=== PATIENT | male | born 1970 | race Caucasian/White ===

== ENCOUNTER 2017-03-13 21:10 | Emergency (ER) | payer BC, OTHER ==
[~2017-03-13] VITALS: Ht 180.3 cm; Wt 108.9 kg
[2017-03-13 21:40] LABS: BASOPHILS % (AUTO) 0 % (0-10); EOSINOPHILS # (AUTO) 0.3 10^3/uL (0.0-0.3); EOSINOPHILS % (AUTO) 3 % (0-10); LYMPHOCYTES # (AUTO) 2.8 X 10^3 (1.0-4.0); LYMPHOCYTES % (AUTO) 24 % (12-44); MEAN CORPUSCULAR HEMOGLOBIN 28 PG (25-34); MEAN CORPUSCULAR HGB CONC 34 G/DL (32-36); MEAN CORPUSCULAR VOLUME 84 FL (80-99); MEAN PLATELET VOLUME 11.1 FL (7.4-10.4); MONOCYTES # (AUTO) 0.8 X 10^3 (0.0-1.0); MONOCYTES % (AUTO) 7 % (0-12); NEUTROPHILS # (AUTO) 7.6 X 10^3 (1.8-7.8); NEUTROPHILS % (AUTO) 66 % (42-75); PLATELET COUNT 294 10^3/uL (130-400); RED BLOOD COUNT 4.75 10^6/uL (4.35-5.85); RED CELL DISTRIBUTION WIDTH 13.8 % (10.0-14.5); WHITE BLOOD COUNT 11.5 10^3/uL (4.3-11.0)
[2017-03-13 21:56] LABS: INR 0.9 (0.8-1.4)
[2017-03-13 22:04] LABS: ALANINE AMINOTRANSFERASE 23 U/L (0-55); ALBUMIN 4.1 GM/DL (3.2-4.5); ANION GAP 15 MMOL/L (5-14); ASPARTATE AMINO TRANSFERASE 19 U/L (5-34); BILIRUBIN,TOTAL 0.8 MG/DL (0.1-1.0); BLOOD UREA NITROGEN 14 MG/DL (7-18); BUN/CREATININE RATIO 13 (0-20); CALCIUM 9.1 MG/DL (8.5-10.1); CARBON DIOXIDE 19 MMOL/L (21-32); CHLORIDE 104 MMOL/L (98-107); CREATININE SERUM 1.11 MG/DL (0.60-1.30); GFR ESTIMATED > 60; GLUCOSE 258 MG/DL (70-105); HEMOLYSIS 104 (-100-29); ICTERUS 0.5 (-100-1.9); LIPEMIA 14 (-100-49); POTASSIUM 4.5 MMOL/L (3.6-5.0); SODIUM 138 MMOL/L (135-145); TOTAL PROTEIN 7.6 GM/DL (6.4-8.2)
[2017-03-13] MEDS ORDERED: PRD10T PO (23:41)
[2017-03-13] MEDS ORDERED: FAMO40TA72 PO (23:41)
--- NOTE | 2017-03-13 23:41 | ED General ---
General Chief Complaint: Skin/Wound Problems Stated Complaint: R ARM SWOLLEN POSS FLY BITE Nursing Triage Note: pt states bit by insect yesterday on rt upper arm. swelling, redness, and warmth visualized. pt states recent surgery 1 yr ago Nursing Sepsis Screen: No Definite Risk Source of Information: Patient History of Present Illness Time Seen by Provider: 21:24 Initial Comments PT ARRIVES VIA POV FROM HOME PT HAD CERVICAL SPINE DISC SURGERY [address] HANCOCK [address], AND IS IN A SOFT CERVICAL COLLAR PT WAS STUNG ON RIGHT UPPER ARM BY A HORSEFLY YESTERDAY AND JERKED HIS NECK TO THE RIGHT, AND HAS HAD INCREASED PAIN IN NECK SINCE THEN NO PARESTHESIAS OR MOTOR DEFICITS NO RADIATION OF PAIN DOWN ARMS OR BACK NO HEADACHE PT HAS NOT TAKEN ANYTHING FOR PAIN TODAY AND HAS HAD INCREASED PAIN IN NECK TODAY--LAST DOSE OF PAIN MEDICATION WAS AT 1930 LAST NIGHT PT DID WORK ALL DAY TODAY PT STATES HE HAS HAD INCREASED PAIN, REDNESS, WARMTH AND SWELLING TO RIGHT ARM SINCE YESTERDAY WAS SEEN AT [facility] LAST PM AND WAS GIVEN A SHOT OF BENADRYL FOR THE HORSEFLY BITE. PT HAS NOT HAD ANY IMPROVEMENT IN SWELLING TODAY PT HAS NOT TAKEN ANYTHING FOR SYMPTOMS AT HOME NO FEVER\ NO CHEST PAIN, SHORTNESS OF BREATH, PALPITATIONS OR DIZZINESS NO SWELLING TO LIPS, TONGUE OR THROAT AND NO DIFFICULTY SWALLOWING NO SWELLING ANYWHERE ELSE Allergies and Home Medications Allergies Coded Allergies: No Known Drug Allergies (Unverified , 03/13/17) Home Medications Famotidine 40 Mg Tablet, 40 MG PO DAILY, #10 Prescribed by: SHARAD KATZ on 03/13/17 2341 Prednisone 10 Mg Tab, 40 MG PO DAILY, #12 Prescribed by: SHARAD KATZ on 03/13/17 2341 Constitutional: no symptoms reported EENTM: no symptoms reported Respiratory: no symptoms reported Cardiovascular: no symptoms reported Gastrointestinal: no symptoms reported Genitourinary: no symptoms reported Musculoskeletal: see HPI Skin: see HPI Psychiatric/Neurological: No Symptoms Reported Hematologic/Lymphatic: No Symptoms Reported Past Ejejxdz-Zwdeic-Zfwfre Hx Patient Social History Alcohol Use: Occasionally Uses Recreational Drug Use: No Smoking Status: Former Smoker (1 PPD, QUIT 08/2016) Former Smoker/When Quit: Aug 27, 2016 Recent Foreign Travel: No Contact w/Someone Who Travel: No Recent Infectious Disease Expo: Yes (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 HANCOCK 02/2017; JAW FX WIRED; LEFT 3RD FINGER FX/ORIF; RIGHT LUNG THORACOTOMY / OPEN DRAINAGE OF ? EMPYEMA/ABSCESS? FROM PNEUMONIA 09/2016--JESSICA/DR. BEVERLY) Surgeries: Gallbladder, Orthopedic Respiratory Hx Respiratory Disorders: Yes (PNEUMONIA 09/2016 WITH OPEN SURGICAL DRAINAGE OF RIGHT LUNG WITH DRAINS PLACED-? EMPYEMA/ABSCESS?) Cardiovascular Hx Cardiac Disorders: Yes Cardiac Disorders: High Cholesterol, Hypertension Neurological Hx Neurological Disorders: No Genitourinary Hx Genitourinary Disorders: No Gastrointestinal Hx Gastrointestinal Disorders: Yes (S/P CHEIKH) Gastrointestinal Disorders: Gall Bladder Disease Musculoskeletal Hx Musculoskeletal Disorders: Yes (CHRONIC NECK AND BACK PAIN ) Musculoskeletal Disorders: Degenerate Disk Disease, Chronic Back Pain Endocrine Hx Endocrine Disorders: Yes Endocrine Disorders: Diabetes, Insulin dep HEENT HX ENT Disorders: Yes (MULTIPLE MISSING TEETH) Cancer Hx Cancer: No Psychosocial Hx Psychiatric Problems: No Integumentary HX Skin/Integumentary Disorder: No Blood Transfusions Hx Blood Disorders: No Physical Exam Vital Signs Vital Sign - Last 12Hours 03/13/17 21:37 Temp 97.5 Pulse 105 Resp 20 B/P (MAP) 147/105 Pulse Ox 98 O2 Delivery Room Air Capillary Refill : NONE General Appearance: No Apparent Distress, WD/WN, Obese, Other (WEARING SOFT C- COLLAR, SMILING, VERY TALKATIVE, DOES NOT APPEAR TO BE IN ANY DISCOMFORT. ) HEENT: PERRL/EOMI, Other (MULTIPLE MISSING TEETH) Neck: Other (IN CERVICAL COLLAR) Respiratory: Normal Breath Sounds, No Accessory Muscle Use, No Respiratory Distress Cardiovascular: Regular Rate, Rhythm, No Murmur Gastrointestinal: Non Tender, Soft Extremity: Normal Capillary Refill, Normal Range of Motion, Swelling (ENTIRE RIGHT ARM SWOLLEN TO JUST ABOVE WRIST, WITH ERYTHEMA AND WARMTH, DISTAL MOTOR/ SENSORY/VASCULAR INTACT. HAS FULL ROM WITHOUT DIFFICULTY. NO DRAINAGE. NO STREAKS. NO AREAS OF FLUCTUANCE. NO CORDING. RIGHT ARM IS SIGNIFICANTLY LARGER THAN LEFT ), Other (1 CM ERYTHEMATOUS PAPULE TO RIGHT UPPER ARM--PT REPORTS IS HORSEFLY STING SITE. ) Neurologic/Psychiatric: Alert, Oriented x3, No Motor/Sensory Deficits, Normal Mood/Affect, trash collector II-XII Norm as Tested Skin: Normal Color, Warm/Dry, Other ( ABOVE) Progress/Results/Core Measures Results/Orders Lab Results Laboratory Tests Test 03/13/17 21:30 Range/Units White Blood Count 11.5 H 4.3-11.0 10^3/uL Red Blood Count 4.75 4.35-5.85 10^6/uL Hemoglobin 13.5 13.3-17.7 G/DL Hematocrit 40 40-54 % Mean Corpuscular Volume 84 80-99 FL Mean Corpuscular Hemoglobin 28 25-34 PG Mean Corpuscular Hemoglobin Concent 34 32-36 G/DL Red Cell Distribution Width 13.8 10.0-14.5 % Platelet Count 294 130-400 10^3/uL Mean Platelet Volume 11.1 H 7.4-10.4 FL Neutrophils (%) (Auto) 66 42-75 % Lymphocytes (%) (Auto) 24 12-44 % Monocytes (%) (Auto) 7 0-12 % Eosinophils (%) (Auto) 3 0-10 % Basophils (%) (Auto) 0 0-10 % Neutrophils # (Auto) 7.6 1.8-7.8 X 10^3 Lymphocytes # (Auto) 2.8 1.0-4.0 X 10^3 Monocytes # (Auto) 0.8 0.0-1.0 X 10^3 Eosinophils # (Auto) 0.3 0.0-0.3 10^3/uL Basophils # (Auto) 0.0 0.0-0.1 10^3/uL Prothrombin Time 12.0 L 12.2-14.7 SEC INR Comment 0.9 0.8-1.4 Activated Partial Thromboplast Time 28 24-35 SEC Sodium Level 138 135-145 MMOL/L Potassium Level 4.5 3.6-5.0 MMOL/L Chloride Level 104 98-107 MMOL/L Carbon Dioxide Level 19 L 21-32 MMOL/L Anion Gap 15 H 5-14 MMOL/L Blood Urea Nitrogen 14 7-18 MG/DL Creatinine 1.11 0.60-1.30 MG/DL Estimat Glomerular Filtration Rate > 60 BUN/Creatinine Ratio 13 0-20 Glucose Level 258 H 70-105 MG/DL Calcium Level 9.1 8.5-10.1 MG/DL Total Bilirubin 0.8 0.1-1.0 MG/DL Aspartate Amino Transf (AST/SGOT) 19 5-34 U/L Alanine Aminotransferase (ALT/SGPT) 23 0-55 U/L Alkaline Phosphatase 88 40-136 U/L Total Protein 7.6 6.4-8.2 GM/DL Albumin 4.1 3.2-4.5 GM/DL My Orders Orders - STERLINGSHARAD Monterroso DO Saline Lock/Iv-Start (03/13/17 21:23) Ct Neck (Soft Tissue) W (03/13/17 21:23) Ct Cervical Spine Wo (03/13/17 21:23) Cbc With Automated Diff (03/13/17 21:23) Comprehensive Metabolic Panel (03/13/17 21:23) Protime With Inr (03/13/17 21:23) Partial Thromboplastin Time (03/13/17 21:23) Us Venous Upper Ext Rt (03/13/17 21:23) Methylprednisolone Sod Succ (Solu-Medrol (03/13/17 23:45) Diphenhydramine Injection (Benadryl Inje (03/13/17 23:45) Famotidine Injection (Pepcid Injection) (03/13/17 23:45) Medications Given in ED Current Medications Medications Dose Ordered Sig/Silvestre Route Start Time Stop Time Status Last Admin Dose Admin Diphenhydramine HCl 50 mg ONCE ONCE IVP 03/13/17 23:45 03/13/17 23:46 DC 03/13/17 23:53 50 MG Famotidine 40 mg ONCE ONCE IVP 03/13/17 23:45 03/13/17 23:46 DC 03/13/17 23:52 40 MG Methylprednisolone Sodium Succinate 125 mg ONCE ONCE IVP 03/13/17 23:45 03/13/17 23:46 DC 03/13/17 23:53 125 MG Vital Signs/I&O Vital Sign - Last 12Hours 03/13/17 03/13/17 21:37 23:59 Temp 97.5 Pulse 105 86 Resp 20 20 B/P (MAP) 147/105 Pulse Ox 98 98 O2 Delivery Room Air Room Air Blood Pressure Mean: 119 Progress Note : Progress Note NO DETERIORATION IN PT'S CONDITION DURING ER STAY DISCUSSED WITH PT THAT HIS BLOOD GLUCOSE LEVELS WILL TEMPORARILY ELEVATE WHILE TAKING PREDNISONE ALSO INFORMED HIM THAT HE DID NOT HAVE TO TAKE PEPCID OR PREDNISONE IF HIS ARM WAS BETTER TOMORROW. Diagnostic Imaging Comments VENOUS ULTRASOUND/DOPPLER RIGHT ARM--NO DVT, PER [facility] VIA FAX @ 7094 CT CERVICAL SPINE--NO ACUTE FRACTURE OR MALALIGNMENT, DISC PROSTHESIS AT C6-C7-- PER [facility] VIA FAX @ 4345 CT NECK SOFT TISSUES--DISC PROSTHESIS AT C6-C7, MILD PREVERTEBRAL EDEMA C4-C5, NON-SPECIFIC IN SETTING OF RECENT SURGERY, OTHERWISE NO ACUTE PROCESS--PER [facility] VIA FAX @ 0014 Reviewed: Reviewed by Me Departure Impression Impression: Primary Impression: REACTION TO HORSEFLY STING RIGHT ARM Additional Impression: POST OP CERVICAL SPINE PAIN Disposition: HOME, SELF-CARE Condition: Stable Departure-Patient Inst. Referrals: NO,LOCAL PHYSICIAN (PCP) Primary Care Physician Patient Instructions: Insect Bites and Stings (DC), Postoperative Pain (DC) Add. Discharge Instructions: ELEVATE RIGHT ARM MUCH POSSIBLE TAKE BENADRYL 50 MG EVERY 4-6 HOURS NEEDED FOR SWELLING CONTINUE ALL POSTOP INSTRUCTIONS TAKE YOUR PAIN MEDICATIONS NEEDED FOLLOW UP WITH YOUR DR ON WEDNESDAY IF NO BETTER RETURN TO ER IF WORSE All discharge instructions reviewed with patient and/or family. Voiced understanding. Scripts Prednisone (Prednisone) 10 Mg Tab 40 MG PO DAILY, #12 TAB Prov: SHARAD KATZ DO 03/13/17 Famotidine (Pepcid) 40 Mg Tablet 40 MG PO DAILY, #10 TAB Prov: SHARAD KATZ DO 03/13/17 SHARAD KATZ DO Mar 13, 2017 23:41
[2017-03-13] MEDS ORDERED: methylPREDNISolone 125 MG (Solu-MEDROL) VIAL IVP ONE (23:45)
[2017-03-13] MEDS ORDERED: diphenhydrAMINE 50 MG/ML INJ (BENADRYL) IVP ONE (23:45)
[2017-03-13] MEDS ORDERED: FAMOTIDINE 20MG/2ML IV (PEPCID) IVP ONE (23:45)
[2017-03-13 23:59] VITALS: BP 153/100
--- NOTE | 2017-03-14 07:15 | Diagnostic Imaging Report ---
INDICATION: Status post recent neck surgery. Pain and swelling. TECHNIQUE: Color and grayscale sonographic images with duplex Doppler evaluation of the upper extremity venous system. CORRELATION STUDY: None FINDINGS: There is no intraluminal filling defect within the visualized portion of the internal jugular, subclavian, axillary, brachial and/or basilic veins to suggest thrombus formation. Where applicable, these vessels demonstrate normal response to compression and augmentation. There is no significant soft tissue fluid collection. IMPRESSION: 1. Negative right upper extremity venous duplex Doppler evaluation. Dictated by: Dictated on workstation # [id number]
--- NOTE | 2017-03-14 07:47 | Diagnostic Imaging Report ---
PROCEDURE: CT neck soft tissue with contrast. TECHNIQUE: Multiple contiguous axial images were obtained through the neck after the administration of contrast. INDICATION: Recent cervical spine surgery. Jerked head to the right, now with pain. FINDINGS: There is straightening of the cervical lordosis. Disc prosthesis at C6-C7 is present. There is mild prevertebral edema at C4-C5 level, nonspecific in setting of recent surgery. A definitive loculated fluid collection does not appear to be present. Nasopharynx and oropharynx appearing unremarkable. Parapharyngeal fat planes preserved. Vocal cords and subglottic airway unremarkable. Parotid glands, submandibular glands, and thyroid gland unremarkable. Visualized lung apices unremarkable. Paranasal sinuses relatively clear. IMPRESSION: Mild prevertebral edema particularly at C4-C5 level, nonspecific in setting of recent surgery. No definitive loculated fluid collection suggested. Dictated by: Dictated on workstation # [id number]
--- NOTE | 2017-03-14 08:01 | Diagnostic Imaging Report ---
PROCEDURE: CT cervical spine without contrast. TECHNIQUE: Multiple contiguous axial images were obtained through the cervical spine without the use of intravenous contrast. Sagittal and coronal reformations were then performed. INDICATION: Recent spine surgery. Jerked head to the right, now with pain. CORRELATION STUDY: None. FINDINGS: There is straightening of the normal cervical lordosis. Alignment is otherwise relatively anatomic. There is a disc prosthesis at C6-C7 level with metallic artifact. Positioning of the disc appears to be likely normal. Minimal endplate spurring is present. There may be minimal osteophyte formation extending into the spinal canal. Remaining disc spaces overall demonstrate minimal narrowing at C4-C5 level with minimal broad-based disc bulge. Moderate narrowing at C7-T1 level. Posterior elements intact. There does appear to be mild paraspinal soft tissue swelling particularly at C5-C6. IMPRESSION: Straightening of the normal cervical lordosis. Postsurgical changes at C6-C7 level. Mild pre-spinal edema. Dictated by: Dictated on workstation # [id number]
== END 2017-03-14 | disposition home or self-care (01) ==
LOC: ER 21:16
DX: S40.861A Insect bite (nonvenomous) of right upper arm, initial encounter (principal); G89.18 Other acute postprocedural pain; E11.9 Type 2 diabetes mellitus without complications; Z87.891 Personal history of nicotine dependence; W57.XXXA Bitten or stung by nonvenomous insect and other nonvenomous arthropods, initial encounter
CPT/HCPCS: 36415; 70491; 72125; 80053; 85025; 85610; 85730

== ENCOUNTER 2018-01-13 20:08 | Emergency (ER) | payer BC, OTHER ==
[~2018-01-13] VITALS: Ht 180.3 cm; Wt 117.5 kg
[~2018-01-13 20:08] MED LIST: FAMO40TA72 PO; PRD10T PO
--- OUTSIDE RECORDS SUMMARY | 2018-01-13 20:14 | XMS REPORT | CCD ---
Author Author ISABELLE BOCANEGRA Organization Unknown Address [address] [facility] [address] [place] [address] Care Team Providers Care Sponge Packer Name Role Phone [facility], BRENDA DO Attphys [facility], BRENDA DO Prisurg Allergies Unknown or Not Available. Active Medications Unknown or Not Available. Problems Problem Code Start Date Resolved Date Status Sepsis 05625930 10/03/2016 Active Acute respiratory failure with hypoxia 186544936 10/03/2016 Active Pneumonia 177592552 10/03/2016 Active Procedures Unknown or Not Available. Results Unknown or Not Available. Function Status Unknown or Not Available. History of Immunizations Unknown or Not Available. Plan of Treatment Unknown or Not Available. Social History Smoking Status Code Start Date End Date Former smoker [id number] 08/23/2016 Vital Signs Unknown or Not Available. Function Status Unknown or Not Available. Goals Unknown or Not Available. ASSESSMENTS Unknown or Not Available. Health Concerns Section Unknown or Not Available.
--- OUTSIDE RECORDS SUMMARY | 2018-01-13 20:14 | XMS REPORT | CCD ---
Author Author ESTEVAN OLMSTEAD Unknown Address [address] [place] [address] Care Team Providers Care Rehabilitation Engineer Name Role Phone [facility], BRENDA DO Attphys [facility], BRENDA DO Prisurg Allergies Unknown or Not Available. Active Medications Unknown or Not Available. Problems Problem Code Start Date Resolved Date Status Sepsis 65948713 10/03/2016 Active Acute respiratory failure with hypoxia 819605030 10/03/2016 Active Pneumonia 458351877 10/03/2016 Active Procedures Procedure Code Procedure Type Date CX CHEST [address] 10/31/2016 BEDSIDE GLUCOSE 29027974 SNOMED CT 10/31/2016 CULTURE WOUND 123078823 SNOMED CT 10/31/2016 LACTIC ACID 2118742 SNOMED [address] 10/31/2016 CBC W/ AUTO DIFF (RFLX MAN DIFF IF IND) 5178054 SNOMED CT 10/31/2016 COMPREHENSIVE METABOLIC PANEL 360793600 SNOMED CT 2016 ^SENSITIVITY 743877860 SNOMED CT 10/31/2016 ^CULTURE AEROBIC ID [id number] SNOMED CT 10/31/2016 ^CBC W/AUTO DIFF 4218839 SNOMED CT 10/31/2016 Results BEDSIDE GLUCOSE - Collect Date/Time: 10/31/2016 16:03 Test Name Code Test Result Test Units Test Ref Range GLUCOSE POCT 281 MG/DL L=70 H=100 COMPREHENSIVE METABOLIC PANEL - Collect Date/Time: 10/31/2016 14:35 Test Name Code Test Result Test Units Test Ref Range GLUCOSE 2345-7 429 MG/DL L=70 H=100 SODIUM 2951-2 134 MEQ/L L=135 H=148 POTASSIUM 2823-3 4.0 MEQ/L L=3.5 H=5.3 CHLORIDE 2075-0 99 MEQ/L L=96 H=110 CO2 2028-9 22 MEQ/L L=22 H=29 BUN 3094-0 17 MG/DL L=8 H=22 CREATININE 2160-0 1.0 MG/DL L=0.6 H=1.6 SGOT/AST 1920-8 11 IU/L L=10 H=40 SGPT/ALT 1742-6 22 IU/L L=8 H=54 ALK PHOS 6768-6 121 IU/L L=35 H=115 TOTAL PROTEIN 2885-2 8.2 G/DL L=5.5 H=8.5 ALBUMIN 1751-7 4.0 G/DL L=3.1 H=5.4 TOTAL BILI 1975-2 0.4 MG/DL L=0.0 H=1.5 CALCIUM 65405-7 9.2 MG/DL L=8.2 H=10.6 AGE 45 yrs GFR NonAA 80 GFR AA 97 eGFR >60 N/A eGFR AA* >60 N/A CBC W/ AUTO DIFF (RFLX MAN DIFF IF IND) - Collect Date/Time: 10/31/2016 14:35 Test Name Code Test Result Test Units Test Ref Range WBC 31115-3 13.1 TH/CMM L=4.5 H=10.8 RBC 789-8 4.08 ML/CMM L=4.70 H=6.10 HGB 718-7 11.6 G/DL L=14.0 H=18.0 HCT 4544-3 34.5 % L=42.0 H=52.0 MCV 85 FL L=81 H=99 MCH 28.4 PG L=27.0 H=33.0 MCHC 33.6 G/DL L=31.0 H=36.0 RDW SD 41 FL L=36 H=50 RDW CV 13.4 % L=0.0 H=14.8 MPV 9.4 FL L=9.3 H=12.5 PLT 777-3 424 TH/CMM L=130 H=440 NRBC# 0.00 TH/CMM L=0.00 H=0.00 NRBC% 0.0 /100WBC L=0.0 H=2.0 %NEUT 68.9 % %LYMP 20.8 % %MONO 6.8 % %EOS 1.5 % %BASO 0.5 % #NEUT 9.03 TH/CMM L=2.10 H=8.20 #LYMP 2.72 TH/CMM L=0.90 H=5.20 #MONO 0.89 TH/CMM L=0.16 H=1.00 #EOS 0.19 TH/CMM L=0.00 H=0.80 #BASO 0.06 TH/CMM L=0.00 H=0.20 MANUAL DIFF NOT IND N/A LACTIC ACID - Collect Date/Time: 10/31/2016 14:35 Test Name Code Test Result Test Units Test Ref Range LACTIC ACID 2524-7 3.2 mmol/L L=0.5 H=1.6 Function Status Unknown or Not Available. History of Immunizations Unknown or Not Available. Plan of Treatment Unknown or Not Available. Social History Smoking Status Code Start Date End Date Former smoker [id number] 08/23/2016 Vital Signs Unknown or Not Available. Function Status Unknown or Not Available. Goals Unknown or Not Available. ASSESSMENTS Unknown or Not Available. Health Concerns Section Unknown or Not Available.
--- OUTSIDE RECORDS SUMMARY | 2018-01-13 20:14 | XMS REPORT | CCD ---
Author Author ISABELLE BOCANEGRA Organization Unknown Address [address] [facility] [address] [place] [address] Care Team Providers Care Body Care Manager Name Role Phone FIELDS, SUSANNAH DO Attphys FIELDS, SUSANNAH DO Prisurg Allergies Unknown or Not Available. Active Medications Unknown or Not Available. Problems Problem Code Start Date Resolved Date Status Sepsis 62546969 10/03/2016 Active Acute respiratory failure with hypoxia 305577151 10/03/2016 Active Pneumonia 315201082 10/03/2016 Active Procedures Procedure Code Procedure Type Date CX CHEST [address] 01/08/2017 BEDSIDE GLUCOSE 65122949 SNOMED CT 01/08/2017 C REACTIVE PROTEIN 23577118 SNOMED CT 01/08/2017 COMPREHENSIVE METABOLIC PANEL 353447185 SNOMED CT 2016 CBC W/ AUTO DIFF (RFLX MAN DIFF IF IND) 0004063 SNOMED CT 01/08/2017 ^CBC W/AUTO DIFF 1003519 SNOMED CT 01/08/2017 Results BEDSIDE GLUCOSE - Collect Date/Time: 01/08/2017 20:28 Test Name Code Test Result Test Units Test Ref Range GLUCOSE POCT 168 MG/DL L=70 H=100 COMPREHENSIVE METABOLIC PANEL - Collect Date/Time: 01/08/2017 20:30 Test Name Code Test Result Test Units Test Ref Range GLUCOSE 2345-7 180 MG/DL L=70 H=100 SODIUM 2951-2 141 MEQ/L L=135 H=148 POTASSIUM 2823-3 3.8 MEQ/L L=3.5 H=5.3 CHLORIDE 2075-0 106 MEQ/L L=96 H=110 CO2 2028-9 21 MEQ/L L=22 H=29 BUN 3094-0 14 MG/DL L=8 H=22 CREATININE 2160-0 0.9 MG/DL L=0.6 H=1.6 SGOT/AST 1920-8 20 IU/L L=10 H=40 SGPT/ALT 1742-6 32 IU/L L=8 H=54 ALK PHOS 6768-6 87 IU/L L=35 H=115 TOTAL PROTEIN 2885-2 7.8 G/DL L=5.5 H=8.5 ALBUMIN 1751-7 4.7 G/DL L=3.1 H=5.4 TOTAL BILI 1975-2 0.8 MG/DL L=0.0 H=1.5 CALCIUM 53080-1 9.4 MG/DL L=8.2 H=10.6 AGE 46 yrs GFR NonAA 90 GFR AA 109 eGFR >60 N/A eGFR AA* >60 N/A CBC W/ AUTO DIFF (RFLX MAN DIFF IF IND) - Collect Date/Time: 01/08/2017 20:30 Test Name Code Test Result Test Units Test Ref Range WBC 52365-2 8.5 TH/CMM L=4.5 H=10.8 RBC 789-8 4.71 ML/CMM L=4.70 H=6.10 HGB 718-7 13.7 G/DL L=14.0 H=18.0 HCT 4544-3 41.4 % L=42.0 H=52.0 MCV 88 FL L=81 H=99 MCH 29.1 PG L=27.0 H=33.0 MCHC 33.1 G/DL L=31.0 H=36.0 RDW SD 47 FL L=36 H=50 RDW CV 14.6 % L=0.0 H=14.8 MPV 10.7 FL L=9.3 H=12.5 PLT 777-3 282 TH/CMM L=130 H=440 NRBC# 0.00 TH/CMM L=0.00 H=0.00 NRBC% 0.0 /100WBC L=0.0 H=2.0 %NEUT 64.9 % %LYMP 22.9 % %MONO 7.2 % %EOS 3.6 % %BASO 0.9 % #NEUT 5.51 TH/CMM L=2.10 H=8.20 #LYMP 1.95 TH/CMM L=0.90 H=5.20 #MONO 0.61 TH/CMM L=0.16 H=1.00 #EOS 0.31 TH/CMM L=0.00 H=0.80 #BASO 0.08 TH/CMM L=0.00 H=0.20 MANUAL DIFF NOT IND N/A C REACTIVE PROTEIN - Collect Date/Time: 01/08/2017 20:30 Test Name Code Test Result Test Units Test Ref Range C REACTIVE PROTEIN 1987- 1.8 MG/DL L=0.0 H= 1.0 Function Status Unknown or Not Available. History of Immunizations Unknown or Not Available. Plan of Treatment Unknown or Not Available. Social History Smoking Status Code Start Date End Date Former smoker [id number] 08/23/2016 Vital Signs Unknown or Not Available. Function Status Unknown or Not Available. Goals Unknown or Not Available. ASSESSMENTS Unknown or Not Available. Health Concerns Section Unknown or Not Available.
--- OUTSIDE RECORDS SUMMARY | 2018-01-13 20:15 | XMS REPORT ---
Author Author Khloe Benitez Organization [facility] Address [address] [place], [place] [id number] Care Team Providers Care Networker Name Role Phone Khloe Benitez PCP Khloe Benitez PreferredProvider Allergies and Adverse Reactions Name Reaction Notes No known drug allergy Plan of Treatment Planned Activity Comments Planned Date Planned Time Plan/Goal Hemoglobin A1c measurement 10/20/2016 12:00 AM Cervical Spine 2-3 Views - Main 12/21/2017 12:00 AM Medications Active Name Start Date Estimated Completion Date SIG Comments vitamin B complex oral capsule take 1 capsule by oral route daily aspirin 325 mg oral tablet take 1 tablet (325 mg) by oral route once daily linezolid 600 mg oral tablet take 1 tablet (600 mg) by oral route every 12 hours for 10 days, STOP the Doxycycline Will end on Wednesday am. Name Start Date Expiration Date SIG Comments Levemir FlexTouch 100 unit/mL (3 mL) subcutaneous insulin pen 11/13/20162017 inject by subcutaneous route 50 units QD Novolog Flexpen 100 unit/mL subcutaneous insulin pen 11/13/2016 11/08/2017 inject by subcutaneous route by sliding scale. Approx 13 units per meal. Max daily total 54units diclofenac sodium 75 mg oral tablet,delayed release (DR/EC) 11/13/20162016 take 1 tablet by oral route daily as needed for 30 days lisinopril 40 mg oral tablet 11/13/2016 11/08/2017 take 1 tablet (40 mg) by oral route once daily for 90 days Norvasc 5 mg oral tablet 11/13/2016 11/08/2017 take 1 tablet (5 mg) by oral route once daily for 90 days ranitidine HCl 75 mg oral tablet 11/13/2016 11/08/2017 take 1 tablet (75 mg) by oral route once daily with a glass of water for 90 days Discontinued Name Start Date Discontinued Date SIG Comments Amaryl 2 mg oral tablet 10/20/2016 take 1 tablet (2 mg) by oral route once daily ibuprofen 200 mg oral tablet 10/20/2016 take 4 tablets by oral route 2 times a day atorvastatin 20 mg oral tablet 10/20/2016 take 1 tablet (20 mg) by oral route once daily aspirin 81 mg oral tablet,delayed release (DR/EC) 10/20/2016 take 1 tablet (81 mg) by oral route once daily meloxicam 15 mg oral tablet 11/13/2016 take 1 tablet (15 mg) by oral route once daily hydrocodone-acetaminophen 5-325 mg oral tablet 10/20/2016 11/13/2016 take 1 tablet by oral route every 8 hours for 30 days Pt states he flushed, doesn't want to take. Levemir 100 unit/mL subcutaneous solution 11/13/2016 11/13/2016 inject by subcutaneous route 50 units before bed Novolog 100 unit/mL subcutaneous solution 11/13/2016 Inject 6 units subcutanelously before meals. Problem List Description Status Onset Diabetes Active Hyperlipidemia Active Hypertension Active Vital Signs Date Time BP-Sys(mm[Hg] BP-Liat(mm[Hg]) HR(bpm) RR(rpm) Temp WT HT HC BMI BSA BMI Percentile O2 Sat(%) 12/21/2017 10:04:00 AM 124 mmHg 84 mmHg 71 bpm 18 rpm 97.2 F 259.375 lbs 71 in 36.18 kg/m2 2.43 m2 95 % 11/13/2016 9:14:00 AM 122 mmHg 88 mmHg 84 bpm 18 rpm 97.1 F 243.6 lbs 71 in 33.975 kg/m 2.3527 m 98 % 10/20/2016 10:02:00 AM 120 mmHg 90 mmHg 110 bpm 18 rpm 97.1 F 245 lbs 71 in 34.17 kg/m2 2.36 m2 96 % 11/20/2015 10:34:00 AM 150 mmHg 104 mmHg 80 bpm 16 rpm 96.5 F 263 lbs 71 in 36.6807 kg/m 2.4446 m 98 % Social History Name Description Comments Tobacco Current every day smoker History of Procedures Date Ordered Description Order Status 10/20/2016 12:00 AM GLYCOSYLATED HEMOGLOBIN TEST Returned Results Summary Not available. History Of Immunizations Not available. History of Past Illness Name Date of Onset Comments Diabetes Hyperlipidemia Hypertension Cerebrovascular Accident (CVA) ruptured disc herniated disc Cholelithiasis Nov 20 2015 10:37AM Chronic Cholecystitis Nov 20 2015 10:37AM Postoperative Follow-up: Cholecystectomy Dec 09 2015 10:11AM Diabetes Mellitus, Type II Oct 20 2016 10:42AM Diabetes Mellitus, Type II, Uncontrolled Nov 13 2016 9:17AM Incisional infection, sequela Nov 13 2016 9:17AM Diabetes Mellitus, Type II, Uncontrolled Oct 20 2016 10:06AM Pneumonia of right lower lobe due to infectious organism Oct 20 2016 10:06AM Pleural effusion due to bacterial infection Oct 20 2016 10:06AM Cerebrovascular disease Oct 20 2016 10:06AM Incisional irritation, subsequent encounter Oct 20 2016 10:06AM Neck pain Dec 21 2017 10:06AM Muscle spasms of neck Dec 21 2017 10:06AM Hyperlipidemia, Mixed Dec 21 2017 10:06AM Hypertension Dec 21 2017 10:06AM Payers Insurance Name Company Name Plan Name Plan Number Policy Number Policy Group Number Start Date Cigna Cigna [id number] N/A [id number] N/A History of Encounters Visit Date Visit Type Provider 12/21/2017 Office visit Khloe Benitez MD 11/13/2016 Office visit Khloe Benitez MD 10/20/2016 Office visit Khloe Benitez MD 10/03/2016 [facility] Day Sousa MD 10/03/2016 [facility] Mandeep Weber MD 09/27/2016 [facility] Day Sousa MD 12/09/2015 Office visit Garry Cameron MD 11/29/2015 [facility] Day Sousa MD 11/29/2015 [facility] Garry Cameron MD 11/20/2015 Office visit Garry Cameron MD 06/27/2014 [facility] Estefania Junior MD 06/24/2014 [facility] Day Sousa MD
--- OUTSIDE RECORDS SUMMARY | 2018-01-13 20:15 | XMS REPORT | CCD ---
Author Author ESTEVAN OLMSTEAD Unknown Address [address] [place] [address] Care Team Providers Care Brick Tender Name Role Phone EMILE MOCTEZUMA MD Attphys EMILE MOCTEZUMA MD [facility] Allergies Unknown or Not Available. Active Medications Unknown or Not Available. Problems Problem Code Start Date Resolved Date Status Sepsis 07782314 10/03/2016 Active Acute respiratory failure with hypoxia 347027461 10/03/2016 Active Pneumonia 768208516 10/03/2016 Active Procedures Unknown or Not Available. Results Unknown or Not Available. Encounters Encounter Diagnosis Diagnosis Code Start Date Hordeolum externum left lower eyelid D21923 01/07/2017 Function Status Unknown or Not Available. History of Immunizations Unknown or Not Available. Social History Smoking Status Code Start Date End Date Former smoker [id number] 08/23/2016 Vital Signs Unknown or Not Available. Function Status Unknown or Not Available. Goals Unknown or Not Available. ASSESSMENTS Unknown or Not Available. Health Concerns Section Unknown or Not Available.
--- OUTSIDE RECORDS SUMMARY | 2018-01-13 20:16 | XMS REPORT | CCD ---
Author Author ISABELLE BOCANEGRA Organization Unknown Address [address] [facility] [address] [place] [address] Care Team Providers Care Floor And Wall Applier Liquid Name Role Phone MEILE MOCTEZUMA MD Attphys EMILE MOCTEZUMA MD [facility] Allergies Unknown or Not Available. Active Medications Unknown or Not Available. Problems Problem Code Start Date Resolved Date Status Sepsis 44529648 10/03/2016 Active Acute respiratory failure with hypoxia 062137799 10/03/2016 Active Pneumonia 479997492 10/03/2016 Active Procedures Procedure Code Procedure Type Date CX CHEST [address] 10/18/2016 Results Unknown or Not Available. Encounters Encounter Diagnosis Diagnosis Code Start Date Acute post-thoracotomy pain G8912 10/18/2016 Function Status Unknown or Not Available. History of Immunizations Unknown or Not Available. Plan of Treatment Unknown or Not Available. Social History Smoking Status Code Start Date End Date Former smoker [id number] 08/23/2016 Vital Signs Unknown or Not Available. Function Status Unknown or Not Available. Goals Unknown or Not Available. ASSESSMENTS Unknown or Not Available. Health Concerns Section Unknown or Not Available.
--- OUTSIDE RECORDS SUMMARY | 2018-01-13 20:16 | XMS REPORT | CCD ---
Author Author ISABELLE BOCANEGRA Organization Unknown Address [address] [facility] [address] [place] [address] Care Team Providers Care Senior Software Test Engineer Name Role Phone PEREZ CORONAYANNA Attphys PEREZ CORONAYANNA [facility] Allergies Unknown or Not Available. Active Medications Unknown or Not Available. Problems Problem Code Start Date Resolved Date Status Sepsis 65635724 10/03/2016 Active Acute respiratory failure with hypoxia 023681065 10/03/2016 Active Pneumonia 913844718 10/03/2016 Active Procedures Procedure Code Procedure Type Date CT MAXILLOFACIAL W/O CONTRAST 735970620 SNOMED CT 2016 Results Unknown or Not Available. Encounters Encounter Diagnosis Diagnosis Code Start Date Contusion of nose, initial encounter [id number] 02/13/2017 Function Status Unknown or Not Available. History of Immunizations Unknown or Not Available. Plan of Treatment Unknown or Not Available. Social History Smoking Status Code Start Date End Date Former smoker [id number] 08/23/2016 Vital Signs Unknown or Not Available. Function Status Unknown or Not Available. Goals Unknown or Not Available. ASSESSMENTS Unknown or Not Available. Health Concerns Section Unknown or Not Available.
--- OUTSIDE RECORDS SUMMARY | 2018-01-13 20:16 | XMS REPORT | CCD ---
Author Author ESTEVAN OLMSTEAD Unknown Address [address] [place] [address] Care Team Providers Care Commercial Fishing Vessel Operator Name Role Phone BRIDGEPORT ER, BRENDA DO Attphys BRIDGEPORT ER, BRENDA DO [facility] Allergies Allergy Code Allergy Type Reaction Status NO KNOWN DRUG ALLERGIES - NKDA 0 Drug allergy Active Active Medications Unknown or Not Available. Problems Problem Code Start Date Resolved Date Status Sepsis 34753328 10/03/2016 Active Acute respiratory failure with hypoxia 319842442 10/03/2016 Active Pneumonia 428437496 10/03/2016 Active Procedures Unknown or Not Available. Results Unknown or Not Available. Encounters Encounter Diagnosis Diagnosis Code Start Date Cellulitis of face K94308 02/16/2017 Function Status Unknown or Not Available. History of Immunizations Unknown or Not Available. Social History Smoking Status Code Start Date End Date Former smoker 7616269 08/23/2016 Vital Signs Unknown or Not Available. Function Status Unknown or Not Available. Goals Unknown or Not Available. ASSESSMENTS Unknown or Not Available. Health Concerns Section Unknown or Not Available.
--- OUTSIDE RECORDS SUMMARY | 2018-01-13 20:16 | XMS REPORT | CCD ---
Author Author ESTEVAN OLMSTEAD Unknown Address [address] [facility] [address] [place] [address] Care Team Providers Care Comb Fixer Name Role Phone SUSANNAH FIELDS DO Attphys Allergies Allergy Code Allergy Type Reaction Status NO KNOWN DRUG ALLERGIES - NKDA 0 Drug allergy Active Active Medications Unknown or Not Available. Problems Problem Code Start Date Resolved Date Status Sepsis 01506570 10/03/2016 Active Acute respiratory failure with hypoxia 503754899 10/03/2016 Active Pneumonia 951160180 10/03/2016 Active Procedures Unknown or Not Available. Results Unknown or Not Available. Function Status Unknown or Not Available. History of Immunizations Unknown or Not Available. Plan of Treatment Unknown or Not Available. Social History Smoking Status Code Start Date End Date Former smoker 6623828 08/23/2016 Vital Signs Unknown or Not Available. Function Status Unknown or Not Available. Goals Unknown or Not Available. ASSESSMENTS Unknown or Not Available. Health Concerns Section Unknown or Not Available.
--- OUTSIDE RECORDS SUMMARY | 2018-01-13 20:16 | XMS REPORT | Continuity of Care Document ---
Author Author [facility] Organization [facility] Address Unknown Phone Unavailable Allergies Active Description Code Type Severity Reaction Onset Reported/Identified Relationship to Patient Clinical Status Yes NO KNOWN DRUG ALLERGIES - NKDA [id number] CLASS N/A N/A Yes No Known Drug Allergies [id number] Drug Allergy Unknown N/A 03/13/2017 Medications There is no data. Problems Date Dx Coded Attending Type Code Diagnosis Diagnosed By 03/14/2017 SHARAD KATZ DO, Ot E11.9 TYPE 2 DIABETES MELLITUS WITHOUT COMPLIC 03/14/2017 SHARAD KATZ DO, Ot G89.18 OTHER ACUTE POSTPROCEDURAL PAIN 03/14/2017 SHARAD KATZ DO, Ot S40.861A INSECT BITE (NONVENOMOUS) OF RIGHT UPPER 03/14/2017 SHARAD KATZ DO Ot W57.XXXA BIT/STUNG BY NONVENOM INSECT OTH NONVE 03/14/2017 SHARAD KATZ DO Ot Z87.891 PERSONAL HISTORY OF NICOTINE DEPENDENCE 08/08/2017 P X78749 Pain in right finger(s) Procedures There is no data. Results Test Result Range Nicotine Metabolite, Urine - 09/18/16 08:30 Cotinine Negative ng/mL Mtnowp=583 Drug Screen Comment: Comment Nicotine Metabolite, Urine - 02/16/17 10:49 Cotinine Negative ng/mL Cshmed=238 Drug Screen Comment: Comment Complete blood count (CBC) with automated white blood cell (WBC) differential - 03/13/17 21:30 Blood leukocytes automated count (number/volume) 11.5 10*3/uL 4.3-11.0 Blood erythrocytes automated count (number/volume) 4.75 10*6/uL 4.35-5.85 Venous blood hemoglobin measurement (mass/volume) 13.5 g/dL 13.3-17.7 Blood hematocrit (volume fraction) 40 % 40-54 Automated erythrocyte mean corpuscular volume 84 [foz_us] 80-99 Automated erythrocyte mean corpuscular hemoglobin (mass per erythrocyte) 28 pg 25-34 Automated erythrocyte mean corpuscular hemoglobin concentration measurement ( mass/volume) 34 g/dL 32-36 Automated erythrocyte distribution width ratio 13.8 % 10.0-14.5 Automated blood platelet count (count/volume) 294 10*3/uL 130-400 Automated blood platelet mean volume measurement 11.1 [foz_us] 7.4-10.4 Automated blood neutrophils/100 leukocytes 66 % 42-75 Automated blood lymphocytes/100 leukocytes 24 % 12-44 Blood monocytes/100 leukocytes 7 % 0-12 Automated blood eosinophils/100 leukocytes 3 % 0-10 Automated blood basophils/100 leukocytes 0 % 0-10 Blood neutrophils automated count (number/volume) 7.6 10*3 1.8-7.8 Blood lymphocytes automated count (number/volume) 2.8 10*3 1.0-4.0 Blood monocytes automated count (number/volume) 0.8 10*3 0.0-1.0 Automated eosinophil count 0.3 10*3/uL 0.0-0.3 Automated blood basophil count (count/volume) 0.0 10*3/uL 0.0-0.1 PT panel in platelet poor plasma by coagulation assay - 03/13/17 21:30 Prothrombin time (PT) in platelet poor plasma by coagulation assay 12.0 s 12.2-14.7 INR in platelet poor plasma or blood by coagulation assay 0.9 0.8-1.4 Activated partial thromboplastin time (aPTT) in platelet poor plasma bycoagulation assay - 03/13/17 21:30 Activated partial thromboplastin time (aPTT) in platelet poor plasma bycoagulation assay 28 s 24-35 Comprehensive metabolic panel - 03/13/17 21:30 Serum or plasma sodium measurement (moles/volume) 138 mmol/L 135-145 Serum or plasma potassium measurement (moles/volume) 4.5 mmol/L 3.6-5.0 Serum or plasma chloride measurement (moles/volume) 104 mmol/L 98-107 Carbon dioxide 19 mmol/L 21-32 Serum or plasma anion gap determination (moles/volume) 15 mmol/L 5-14 Serum or plasma urea nitrogen measurement (mass/volume) 14 mg/dL 7-18 Serum or plasma creatinine measurement (mass/volume) 1.11 mg/dL 0.60-1.30 Serum or plasma urea nitrogen/creatinine mass ratio 13 0 -20 Serum or plasma creatinine measurement with calculation of estimated glomerular filtration rate > NRG Serum or plasma glucose measurement (mass/volume) 258 mg/dL 70-105 Serum or plasma calcium measurement (mass/volume) 9.1 mg/dL 8.5-10.1 Serum or plasma total bilirubin measurement (mass/volume) 0.8 mg/dL 0.1-1.0 Serum or plasma alkaline phosphatase measurement (enzymatic activity/volume) 88 U/L 40-136 Serum or plasma aspartate aminotransferase measurement (enzymatic activity/ volume) 19 U/L 5-34 Serum or plasma alanine aminotransferase measurement (enzymatic activity/volume ) 23 U/L 0-55 Serum or plasma protein measurement (mass/volume) 7.6 g/dL 6.4-8.2 Serum or plasma albumin measurement (mass/volume) 4.1 g/dL 3.2-4.5 Encounters ACCT No. Visit Date/Time Discharge Status Pt. Type Provider Facility Loc./Unit Complaint [id number] 12/21/2017 11:08:34 12/21/2017 23:59:59 CLS Outpatient Khloe Benitez [id number] 12/18/2016 14:35:49 12/18/2016 23:59:59 CLS Outpatient Day Sousa [id number] 11/13/2016 09:47:42 11/13/2016 23:59:59 CLS Outpatient Khloe Benitez [id number] 11/05/2016 13:12:04 11/05/2016 23:59:59 CLS Outpatient Day Sousa [id number] 10/21/2016 12:50:43 10/21/2016 23:59:59 CLS Outpatient Mandeep Weber [id number] 10/20/2016 10:41:18 10/20/2016 23:59:59 CLS Outpatient Khloe Benitez [id number] 12/09/2015 10:45:32 12/09/2015 23:59:59 CLS Outpatient Garry Cameron [id number] 12/04/2015 14:29:53 12/04/2015 23:59:59 CLS Outpatient Garry Cameron [id number] 11/20/2015 10:44:19 11/20/2015 23:59:59 JAIME Outpatient Garry Cameron [id number] 09/07/2014 16:41:31 09/07/2014 23:59:59 CLS Outpatient Day Sousa [id number] 07/06/2014 13:39:49 07/06/2014 23:59:59 CLS Outpatient Estefania Junior [id number] 12/30/2017 10:13:04 Document Registration [id number] 12/07/2017 11:20:22 Document Registration [id number] 11/20/2017 15:59:19 Document Registration [id number] 11/20/2017 15:21:25 Document Registration [id number] 11/12/2017 11:49:52 Document Registration [id number] 11/12/2017 11:43:26 Document Registration [id number] 10/25/2017 10:11:41 Document Registration [id number] 08/08/2017 12:29:18 Document Registration [id number] 08/08/2017 12:22:45 Document Registration [id number] 06/26/2017 01:05:38 Document Registration [id number] 06/26/2017 00:47:25 Document Registration [id number] 02/17/2017 14:07:00 Document Registration [id number] 03/13/2017 21:16:00 03/14/2017 00:00:00 DIS Emergency SHARAD KATZ DO [facility] ER R ARM SWOLLEN POSS FLY BITE [id number] 09/19/2016 13:05:00 Document Registration
[2018-01-13] MEDS ORDERED: ORPHENADRINE 60 MG/2 ML (NORFLEX) AMP IM ONE (21:00)
--- NOTE | 2018-01-13 21:02 | ED Headache ---
General Chief Complaint: Head/Cervical Problems Stated Complaint: PAIN IN HEAD AND SHOULDERS Nursing Triage Note: C/O worsening head neck and shoulder pain since Wednesday. States he knows he has cervical issues and is to see Dr velázquez on 01/31. No numbness or weakness. Been working with saws and is reaching and pulling more than normal Nursing Sepsis Screen: No Definite Risk Source: patient Exam Limitations: no limitations History of Present Illness Date Seen by Provider: Jan 13, 2018 Time Seen by Provider: 20:59 Initial Comments to ER with reports of a headache neck and shoulder pain since Wednesday of this week.states that he has known cervical disc disease and has had one of these replaced by Dr. Ledbetter in February of last year. He was told there were several other disks that would need replaced within the next few years. Over the past week one of his coworkers has been ill so Radha has been helping to use his saw doing pushing and pulling. He seems to have noticed increased pain in his neck and head for the past week. He has taken Tylenol and Motrin today without any improvement in pain. He denies any paresthesias in either of his arms or weakness in either of his arms or legs. He does report a global headache. Timing/Duration: 1 week, increasing Severity/Quality: moderate Location: global Prior Headaches/Recent Trauma: no recent headache/trauma Allergies and Home Medications Allergies Coded Allergies: No Known Drug Allergies (Unverified , 01/13/18) Home Medications Famotidine 40 Mg Tablet, 40 MG PO DAILY Prescribed by: SHARAD KATZ on 03/13/17 2341 Prednisone 10 Mg Tab, 40 MG PO DAILY Prescribed by: SHARAD KATZ on 03/13/17 2341 Patient Home Medication List Home Medication List Reviewed: Yes Review of Systems Constitutional: see HPI Eyes: No Symptoms Reported Ears, Nose, Mouth, Throat: no symptoms reported Respiratory: no symptoms reported Cardiovascular: no symptoms reported Genitourinary: no symptoms reported Musculoskeletal: no symptoms reported Skin: no symptoms reported Psychiatric/Neurological: No Symptoms Reported Past Tcggjvx-Ltxcpt-Ehonfk Hx Patient Social History Alcohol Use: Denies Use Recreational Drug Use: No Smoking Status: Current Everyday Smoker Type Used: Cigarettes Recent Foreign Travel: No Contact w/Someone Who Travel: No Recent Infectious Disease Expo: No Recent Hopitalizations: No Physical Abuse: No Sexual Abuse: No Mistreated: No Fear: No Immunizations Up To Date Tetanus Booster (TDap): Unknown Seasonal Allergies Seasonal Allergies: No Past Medical History Surgeries: Yes Gallbladder, Orthopedic Respiratory: Yes Cardiac: Yes High Cholesterol, Hypertension Neurological: No Gastrointestinal: Yes (S/P CHEIKH) Gall Bladder Disease Musculoskeletal: Yes (CHRONIC NECK AND BACK PAIN ) Degenerate Disk Disease, Chronic Back Pain Endocrine: Yes Diabetes, Insulin dep Cancer: No Psychosocial: No Nursing Suicide Risk Score: 0 Integumentary: No Blood Disorders: No Physical Exam Vital Signs Vital Signs - First Documented 01/13/18 20:15 Temp 98.3 Pulse 78 Resp 18 B/P (MAP) 134/80 (98) Pulse Ox 98 Capillary Refill : Less Than 3 Seconds General Appearance: WD/WN, no apparent distress HEENT: PERRL/EOMI, normal ENT inspection Neck: non-tender, full range of motion Respiratory: normal breath sounds, no respiratory distress, no accessory muscle use Gastrointestinal: normal bowel sounds, non tender Extremities: normal range of motion, non-tender Psychiatric: alert, oriented x 3 Crainal Nerves: normal hearing, normal speech, PERRL Coordination/Gait: normal finger to nose Motor/Sensory: no motor deficit, no sensory deficit, no pronator drift Skin: normal color, warm/dry Progress/Results/Core Measures My Orders Orders - LOLLY JOSÉ APRN Ct Head Wo (01/13/18 20:58) Orphenadrine Injection (Norflex Injectio (01/13/18 21:00) Rx-Hydrocodone/Apap 5-325 Mg (Rx-Vicodin (01/13/18 22:00) Medications Given in ED Current Medications Medications Dose Ordered Sig/Silvestre Route Start Time Stop Time Status Last Admin Dose Admin Orphenadrine Citrate 60 mg ONCE ONCE IM 01/13/18 21:00 01/13/18 21:01 DC 01/13/18 21:14 60 MG Vital Signs/I&O 01/13/18 20:15 Temp 98.3 Pulse 78 Resp 18 B/P (MAP) 134/80 (98) Pulse Ox 98 Blood Pressure Mean: 98 Departure Impression Primary Impression: Tension type headache Disposition: 01 HOME, SELF-CARE Condition: Stable Departure-Patient Inst. Decision time for Depature: 21:02 Referrals: SALLY RODAS MD (PCP/Family) Primary Care Physician Patient Instructions: Tension Headache (DC) Add. Discharge Instructions: 1. Medication as directed 2. Return to ER for any concerns 3. Follow-up with Dr. Ledbetter. Call tomorrow to make an appointment to be seen.All discharge instructions reviewed with patient and/or family. Voiced understanding. Scripts Hydrocodone/Acetaminophen (Daniel 5-325 Tablet) 1 Each Tablet 1 EACH PO Q4H PRN for PAIN-SEVERE, #10 TAB Prov: LOLLY JOSÉ APRN 01/13/18 Work/School Note: Work Release Form Date Seen in the Emergency Department: Jan 13, 2018 Return to Work: Jan 15, 2018 Restrictions: No Restrictions LOLLY JOSÉ APRN Jan 13, 2018 21:02
--- NOTE | 2018-01-13 21:54 | Diagnostic Imaging Report ---
PROCEDURE: CT head without contrast. TECHNIQUE: Multiple contiguous axial images were obtained through the brain without the use of intravenous contrast. INDICATION: Encephalalgia. FINDINGS: The ventricles are normal in size, shape and position. There are no masses or hemorrhages. There are no extra-axial fluid collections. IMPRESSION: Negative CT head. Dictated by: Dictated on workstation # [id number]
[2018-01-13] MEDS ORDERED: RX-HYDROCODONE/APAP 5/325 MG #4 TAB PK PO PRN (22:00)
[2018-01-13] MEDS ORDERED: HYDR-757 PO (22:02)
[2018-01-13 22:21] VITALS: BP 130/71
== END 2018-01-13 22:21 | disposition home or self-care (01) ==
LOC: EDUNIT# 20:08 → ER 20:10
DX: G44.201 Tension-type headache, unspecified, intractable (principal); E78.00 Pure hypercholesterolemia, unspecified; I10 Essential (primary) hypertension; E11.9 Type 2 diabetes mellitus without complications; F17.210 Nicotine dependence, cigarettes, uncomplicated; Z87.448 Personal history of other diseases of urinary system; Z79.52 Long term (current) use of systemic steroids; Z90.49 Acquired absence of other specified parts of digestive tract
CPT/HCPCS: 70450; 96372